=== PATIENT | female | born 1950 | race Caucasian/White ===

== ENCOUNTER 2018-06-26 01:56 | Emergency (ER) | payer MEDICARE ==
[2018-06-26] MEDS ORDERED: LIDOCAINE 1%/EPINEPHRINE INJ 20 ML VIAL INJ ONE (02:27)
[2018-06-26 02:54] LABS: INTERNATIONAL RATION (INR) 2.66; PROTHROMBIN TIME 29.6 SEC (11.4-15.4)
[2018-06-26 03:03] LABS: ABSOLUTE BASOPHILS # (AUTO) 0.1 10^3/uL (0.0-0.2); ABSOLUTE EOSINOPHILS # (AUTO) 0.1 10^3/uL (0.0-0.6); ABSOLUTE LYMPHOCYTES (AUTO) 1.1 10^3/uL (0.5-4.7); ABSOLUTE MONOCYTES (AUTO) 0.4 10^3/uL (0.1-1.4); BASOPHILS % (AUTO) 1.2 % (0-2); HEMATOCRIT 40.5 % (36.0-47.0); HEMOGLOBIN 13.8 g/dL (12.0-15.5); LYMPHOCYTES % (AUTO) 23.7 % (13-45); MEAN CORPUSCULAR HEMOGLOBIN 32.8 pg (27.0-33.4); MEAN CORPUSCULAR VOLUME 96 fl (80-97); MONOCYTES % (AUTO) 8.3 % (3-13); PLATELET COUNT 205 10^3/uL (150-450); RED BLOOD COUNT 4.21 10^6/uL (3.72-5.28); RED CELL DISTRIBUTION WIDTH 13.1 % (11.5-14.0); SEGMENTED NEUTROPHILS % (AUTO) 63.8 % (42-78); TOTAL CELLS COUNTED % (AUTO) 100 %; WHITE BLOOD COUNT 4.8 10^3/uL (4.0-10.5)
--- NOTE | 2018-06-26 04:07 | ER Document Report ---
ED General - General Chief Complaint: Nose Bleed Stated Complaint: BLOODY NOSE Time Seen by Provider: 06/26/18 02:21 Notes: Patient is a 68-year-old female presents with complaint of nosebleed. They hear the there is please stop but she still clearing some mucus from her nose. It started spontaneously tonight. She is on Coumadin for A. fib. She does have history of anemia. She denies any trauma injuries to her nose. No other complaints at this time. TRAVEL OUTSIDE OF THE [place] IN LAST 30 DAYS: No - Related Data Allergies/Adverse Reactions: No Known Allergies Allergy (Unverified 06/26/18 01:59) Past Medical History - Social History Smoking Status: Never Smoker Chew tobacco use (# tins/day): No Frequency of alcohol use: None Drug Abuse: None Family History: Reviewed & Not Pertinent Patient has suicidal ideation: No Patient has homicidal ideation: No - Past Medical History Cardiac Medical History: Reports: Hx Atrial Fibrillation, Hx Hypertension Renal/ Medical History: Denies: Hx Peritoneal Dialysis Past Surgical History: Reports: Hx Section - 2 Review of Systems - Review of Systems Notes: My Normal Review Basic REVIEW OF SYSTEMS: CONSTITUTIONAL : Denies fever, chills, or sweats. Denies recent illness. EENT: Nosebleed. RESPIRATORY: Denies cough, cold, or chest congestion. Denies shortness of breath, difficulty breathing, or wheezing. NEUROLOGICAL: Denies altered mental status or loss of consciousness. Denies headache. ALL OTHER SYSTEMS REVIEWED AND NEGATIVE. Physical Exam - Vital signs Vitals: BP 142/128 H 06/26/18 02:51 - Notes Notes: General Appearance: Well nourished, alert, cooperative, no acute distress, no obvious discomfort. Well appearing. Vitals: reviewed, See vital signs table. Head: no swelling or tenderness to the head Eyes: PERRL, EOMI, Conjuctiva clear Mouth: No decreasd moisture Throat: No tonsillar inflammation, No airway obstruction, No lymphadenopathy Nose: No dry blood in nares. No septal hematoma. No active bleeding. Neuro: speech clear, oriented x 3, normal affect, responds appropriately to questions. Course - Re-evaluation Re-evalutation: 06/26/18 06:42 I placed a cotton ball soaked with lidocaine with epi in the patient's right nare. The left therefore will been removed. She has had no further bleeding. I did place a little bit of surgilube inside the patient's nose to help keep the nasal mucosa moist. INR is appropriate at 2.66. She is not anemic. She looks well. I feel she is safe to be discharged home. I encouraged her return to ER if she has recurrent bleeding or feels unwell. Patient agrees with plan will be discharged home. Dictation of this chart was performed using voice recognition software; therefore, there may be some unintended grammatical errors. - Vital Signs Vital signs: Temp Pulse Resp BP Pulse Ox 20 137/86 H 96 06/26/18 04:15 06/26/18 04:15 06/26/18 04:15 - Laboratory Result Diagrams: 06/26/18 02:25 Laboratory results interpreted by me: 06/26/18 02:25 PT 29.6 H Discharge - Discharge Clinical Impression: Epistaxis Condition: Good Disposition: HOME, SELF-CARE Additional Instructions: Please take your coumadin as prescribed. please follow up with your odctor for reevaluation in 2-3 days. Return tot ER if you have recurrent bleeding that does not resolve with pinching the nose for 30 minutes. Forms: Special Work Note
[2018-06-26 04:20] VITALS: BP 137/86
== END 2018-06-26 04:20 | disposition home or self-care (01) ==
LOC: ER 01:56
DX: R04.0 Epistaxis (principal); I48.91 Unspecified atrial fibrillation; Z79.01 Long term (current) use of anticoagulants; I10 Essential (primary) hypertension
CPT/HCPCS: 99283; 36415; 85025; 85610; 30901; J3490